=== PATIENT | female | born 1990 | race Caucasian/White ===

== ENCOUNTER 2021-01-12 14:36 | Emergency (ER) | payer BC, OTHER ==
[2021-01-12] MEDS ORDERED: Ketorolac 30 MG/ML SDV IM ONE (15:01)
--- NOTE | 2021-01-12 15:15 | EDM.PDOC ---
ED HPI GENERAL MEDICAL PROBLEM - General Chief Complaint: Lower Extremity Injury/Pain Stated Complaint: L FOOT INJURY Time Seen by Provider: 01/12/21 14:53 Source of Information: Reports: Patient, RN Notes Reviewed History Limitations: Reports: No Limitations - History of Present Illness INITIAL COMMENTS - FREE TEXT/NARRATIVE: Patient is a 30-year-old female who is brought in by senior care staff for the evaluation of a left ankle/foot injury. Patient was playing volleyball, and ended up rolling her left ankle/foot. States that she has been trying to walk it off however she has not been able to put much weight on the foot at all. She was not given any sort of Tylenol ibuprofen prior to coming to the ER. Denying any numbness or tingling distal to the injury. Denying at this time. Patient denies any other sick-like symptoms, fever/chills, cough/shortness of breath, nausea/vomiting/diarrhea. Left Foot Pain Score (Numeric/FACES): 10 - Related Data Allergies Allergy/AdvReac Type Severity Reaction Status Date / Time No Known Allergies Allergy Verified 01/12/21 14:54 Home Meds: Home Meds Topiramate [Topamax] 50 mg PO BID 01/12/21 [History] Past Medical History - Past Health History Medical/Surgical History: Denies Medical/Surgical History Social & Family History - Tobacco Use Tobacco Use Status *Q: Former Tobacco User Used Tobacco, but Quit: Yes Month/Year Tobacco Last Used: 07/28/2012 - Caffeine Use Caffeine Use: Reports: Coffee, Soda - Recreational Drug Use Recreational Drug Use: No Review of Systems - Review of Systems Review Of Systems: Comprehensive ROS is negative, except as noted in HPI. ED EXAM, GENERAL - Physical Exam Exam: See Below Exam Limited By: No Limitations General Appearance: Alert, WD/WN, No Apparent Distress Eye Exam: Bilateral Eye: Normal Inspection, PERRL Respiratory/Chest: No Respiratory Distress, Lungs Clear, Normal Breath Sounds, No Accessory Muscle Use, Chest Non-Tender Cardiovascular: Normal Peripheral Pulses, Regular Rate, Rhythm, No Edema Peripheral Pulses: 2+: Dorsalis Pedis (L), Dorsalis Pedis (R) Extremities: Normal Range of Motion, Normal Capillary Refill, Other (Swelling about the left lateral midfoot, and left lateral malleolus of the left ankle) Neurological: Alert, Oriented, CN II-XII Intact, Normal Cognition Psychiatric: Normal Affect, Normal Mood Skin Exam: Warm, Dry, Intact, Normal Color, No Rash ED TRAUMA EXTREMITY PROCEDURES - Splinting Left Lower Extremity Splint Site: left foot/ankle Pre-Procedure NV Status: Normal Post-Procedure NV Status: Normal Splint Material: Boot Orthotic Applied & Form Fitted By: Provider, Nurse Provider Post-Splint Application NV Check: NV Status Normal, Good Position Complications: No Course - Vital Signs Last Recorded V/S: Last Vital Signs Temp 98.2 F 01/12/21 14:52 Pulse 64 01/12/21 14:52 Resp 18 01/12/21 14:52 BP 119/79 01/12/21 14:52 Pulse Ox 100 01/12/21 14:52 - Orders/Labs/Meds Orders: Active Orders 24 hr Category Date Time Status Ankle Min 3V Lt [CR] Stat Exams 01/12/21 15:01 Ordered Foot 2V Lt [CR] Stat Exams 01/12/21 15:01 Ordered DME for Discharge [COMM] Routine Oth 01/12/21 15:35 Ordered Meds: Medications Discontinued Medications Generic Name Dose Route Start Last Admin Trade Name Freq PRN Reason Stop Dose Admin Ketorolac Tromethamine 30 mg 01/12/21 15:01 01/12/21 15:18 Ketorolac 30 Mg/Ml Sdv IM 01/12/21 15:02 30 mg ONETIME ONE Administration - Re-Assessments/Exams Free Text/Narrative Re-Assessment/Exam: 01/12/21 15:14 Patient presents to the ER for the evaluation of her left ankle/foot injury, we will get x-rays of the area, and give the patient IM Toradol for pain management. 01/12/21 15:32 X-rays have been obtained, does appear that the patient has broken the base of her fifth metatarsal of the left foot. Ankle x-ray does otherwise appear within normal limits however official radiology read is still pending at this time. 01/12/21 15:35 We will set the patient up with a walking boot and crutches to prevent further injury and/or stabilize the injury you received today. She will be given strict instructions to have no weightbearing on the extremity whatsoever, she will need to follow-up with orthopedics for ongoing management. Departure - Departure Time of Disposition: 15:36 Disposition: Home, Self-Care 01 Condition: Good Clinical Impression: Fracture of metatarsal of left foot, closed Qualifiers: Encounter type: initial encounter Metatarsal bone: fifth Fracture alignment: nondisplaced Qualified Code(s): S92.355A - Nondisplaced fracture of fifth metatarsal bone, left foot, initial encounter for closed fracture - Discharge Information *PRESCRIPTION DRUG MONITORING PROGRAM REVIEWED*: No *COPY OF PRESCRIPTION DRUG MONITORING REPORT IN PATIENT DIMITRIOS: No Instructions: Metatarsal Fracture Referrals: PCP,None [Primary Care Provider] - Forms: ED Department Discharge Additional Instructions: You have been evaluated in the ED for your left foot/ankle injury. Your x-ray demonstrated a fracture of your fifth metatarsal, which is the base of the foot bone in your left foot. This is located in your midfoot area, right about where the swelling and pain was. Please use ice as tolerated to the affected area. You may elevate the affected area to provide further relief from swelling. You have been provided with a walking boot and crutches, to prevent further injury and/or stabilize the injury you received today. You will need to stay nonweightbearing, in order for the bone to heal appropriately, just because you were given a walking boot, does not mean that you can walk on it, again you are strictly prohibited for placing any weight on the left foot. You may take Tylenol 500 mg or ibuprofen 600mg q6 hrs for pain relief. Please do so until you have a tolerable level of pain with activity. Do not exceed 4000mg Tylenol, Do not exceed 3200mg ibuprofen in a 24 hour time period. Please call Ortho for follow-up and further evaluation Dr. Gonzalez is our orthopedic surgeon, his office number is [phone]. Please call and set up an appointment as soon as possible for further management. Please return to ED if your symptoms should change or worsen. Sepsis Event Note (ED) - Evaluation Sepsis Screening Result: No Definite Risk - Focused Exam Vital Signs: Vital Signs Temp Pulse Resp BP Pulse Ox 01/12/21 14:52 98.2 F 64 18 119/79 100 - My Orders Last 24 Hours: My Active Orders 01/12/21 15:01 Ankle Min 3V Lt [CR] Stat Foot 2V Lt [CR] Stat 01/12/21 15:35 DME for Discharge [COMM] Routine - Assessment/Plan Last 24 Hours: My Active Orders 01/12/21 15:01 Ankle Min 3V Lt [CR] Stat Foot 2V Lt [CR] Stat 01/12/21 15:35 DME for Discharge [COMM] Routine
--- NOTE | 2021-01-12 17:20 | CR ---
Left ankle: 4 views of the left ankle were obtained. Comparison: No prior ankle study is available. Fracture is identified within the base of the fifth metacarpal with slight displacement. Ankle mortise is symmetric. No additional fracture or other bony abnormality is appreciated. Impression: 1. Mildly displaced fracture within the base of the left fifth metatarsal. 2. Left ankle exam is otherwise unremarkable. Diagnostic code #3
--- NOTE | 2021-01-12 17:23 | CR ---
Left foot: 2 views of the left foot were obtained. Comparison: No prior foot imaging is available, ankle radiograph performed earlier on the same day (3:06 PM MDT) Slightly displaced fracture is seen within the base of the fifth metatarsal. Adjacent soft tissue swelling is noted. Joint spaces are maintained. No additional fracture or other bony abnormality is appreciated. Impression: 1. Mildly displaced fracture involving the base of the fifth left metatarsal. 2. Soft tissue swelling. Diagnostic code #3
== END 2021-01-12 16:30 | disposition home or self-care (01) ==
LOC: JD.ED 14:36
DX: S92.355A Nondisplaced fracture of fifth metatarsal bone, left foot, initial encounter for closed fracture (principal); Z87.891 Personal history of nicotine dependence; X50.0XXA Overexertion from strenuous movement or load, initial encounter; Y93.68 Activity, volleyball (beach) (court)
CPT/HCPCS: 73610; 73620; 96372; 99283; J1885